=== PATIENT | male | born 1975 | race Caucasian/White ===

== ENCOUNTER 2017-11-16 11:04 | Inpatient (IN) | payer BC ==
[~2017-11-16] VITALS: Ht 182.9 cm; Wt 86.3 kg
[2017-11-16] MEDS ORDERED: ONDANSETRON HCL/PF 4 MG/2 ML VIAL ONE ×3 (11:24→16:26)
[2017-11-16] MEDS ORDERED: IV NS 0.9% 1,000 ML BAG IV ONE ×2 (11:30→15:00)
[2017-11-16] MEDS ORDERED: ONDANSETRON HCL/PF 4 MG/2 ML VIAL IVP ONE (11:30)
--- NOTE | 2017-11-16 11:45 | NUR ---
BIB [facility] C/O FEELING DIZZY (ROOM IS SPINNING) WITH NAUSEA AND VOMITING, NAD NOTED, VSS, RESP EVEN AND UNLABORED. PT WAS PUT ON MONITOR, AND HOSPITAL GOWN. WAITING FOR MD NUNEZ.
[2017-11-16 11:54] LABS: BASOPHILS % (AUTO) 0.3 % (0.0-2.0); EOSINOPHILS % (AUTO) 3.8 % (0.0-6.0); HEMATOCRIT 45 % (39-51); HEMOGLOBIN 14.9 g/dL (13.5-17.5); LYMPHOCYTES # (AUTO) 1.9 /CMM (0.8-4.8); LYMPHOCYTES % (AUTO) 24.3 % (20.0-44.0); MEAN CORPUSCULAR HEMOGLOBIN 31 PG (26.0-33.0); MEAN CORPUSCULAR HGB CONC 33 g/dl (31.0-36.0); MEAN CORPUSCULAR VOLUME 94 fL (80-96); MONOCYTES # (AUTO) 0.4 /CMM (0.1-1.30); MONOCYTES % (AUTO) 4.9 % (2.0-12.0); NEUTROPHILS # (AUTO) 5.3 /CMM (1.8-8.9); NEUTROPHILS % (AUTO) 66.7 % (43.0-81.0); PLATELET COUNT (AUTO) 225 /CMM (150-450); RDW COEFFICIENT OF VARIATION 13.1 (11.5-15.0); RED BLOOD CELL COUNT(AUTO) 4.78 MIL/uL (4.5-6.0); WHITE BLOOD COUNT (AUTO) 7.9 K/uL (4.3-11.0)
[2017-11-16 12:05] LABS: CARBON DIOXIDE 27 mmol/L (21-32); CHLORIDE 104 mmol/L (98-107); GLUCOSE 154 mg/dL (74-106); SODIUM SERUM 137 mmol/L (136-145); UREA NITROGEN, BLOOD 16 mg/dL (7-18)
[2017-11-16 12:11] LABS: ALANINE AMINOTRANSFERASE 34 U/L (12-78); ALBUMIN 4.2 g/dL (3.4-5.0); ALKALINE PHOSPHATASE 64 U/L (46-116); ASPARTATE AMINOTRANSFERASE 24 U/L (15-37); BILIRUBIN,DIRECT 0.1 mg/dL (0.0-0.2); BILIRUBIN,TOTAL 0.5 mg/dL (0.2-1.0); TOTAL PROTEIN, SERUM 7.7 g/dL (6.4-8.2)
[2017-11-16 12:15] LABS: TROPONIN I < 0.017 ng/mL (0.00-0.056)
[2017-11-16] MEDS ORDERED: IOHEXOL-300 100 ML VIAL IV ONE (12:29)
[2017-11-16] MEDS ORDERED: CT SWABBABLE VALVE TRANS SET 1 EA INFUS.SET MC ONE ×2 (12:29→22:45)
[2017-11-16] MEDS ORDERED: IV NS 0.9% 250 ML IV ONE (12:30)
[2017-11-16] MEDS ORDERED: MECLIZINE HCL 25 MG TABLET ONE (13:38)
[2017-11-16] MEDS ORDERED: MECLIZINE HCL 25 MG TABLET PO ONE (14:00)
[2017-11-16] MEDS ORDERED: ONDANSETRON HCL/PF - ER 4 MG/2 ML VIAL IV ONE (14:00)
[2017-11-16] MEDS ORDERED: BUPR300T52 PO (19:56)
--- NOTE | 2017-11-16 20:07 | NUR ---
CALLED NURSE ANASTACIA FOR MED.SURG BED
[2017-11-16] MEDS ORDERED: PROCHLORPERAZINE EDISYLATE 10 MG/2 ML VIAL ONE (20:35)
[2017-11-16] MEDS ORDERED: KETOROLAC TROMETHAMINE INJ 30 MG/ML VIAL ONE (20:35)
[2017-11-16] MEDS ORDERED: PROCHLORPERAZINE EDISYLATE 10 MG/2 ML VIAL IVP ONE (21:00)
[2017-11-16] MEDS ORDERED: KETOROLAC TROMETHAMINE INJ 30 MG/ML VIAL IV ONE (21:00)
--- NOTE | 2017-11-16 21:20 | NUR ---
CAN HANDLER NOTES Patient came to the unit via gurney, at bedside. Alert, oriented x 4. Breathing even and unlabored. Not in any distress. Patient able to make needs known. Skin assessment done, no skin issues. Oriented to call cardenas. Bed alarm on, patient may need assistance as he came in with vertigo. Bed in low, locked position. Will monitor accordingly.
[2017-11-16 22:00] VITALS: BP 132/67
[2017-11-16] MEDS ORDERED: IV NS 0.9% 1,000 ML IV PRN (22:27)
[2017-11-16] MEDS ORDERED: ACETAMINOPHEN 325 MG TABLET PO PRN (22:30)
[2017-11-16] MEDS ORDERED: DIAZEPAM 5 MG TABLET PO PRN (22:30)
[2017-11-16] MEDS ORDERED: Z GUARD REMEDY 2 OZ OINT TP PRN (22:30)
[2017-11-16] MEDS ORDERED: IOHEXOL-350 100 ML VIAL IV ONE (22:44)
[2017-11-16] MEDS ORDERED: IV NS 0.9% 500 ML IV ONE (22:45)
--- NOTE | 2017-11-16 23:28 | NUR ---
RN NOTES Patient went down for CTA HEAH and CAROTID
--- NOTE | 2017-11-17 00:41 | NUR ---
RN NOTES As per patient, IV was taken out when he was in radiology as the IV was leaking. New IV inserted on L hand g#22 with good blood return. IV of NS at 75mL/hr started as ordered
[2017-11-17 01:30] VITALS: BP 132/67
--- NOTE | 2017-11-17 03:25 | NUR ---
RN NOTES As per Austin Petersen, patient has cerebral infarct and neurosurgeon is made aware. No intervention as of this time. Neurocheck done. Patient is responsive to name and follows commands; able to lift both arms up and move feet and ankles, pupils are reactive to light. No nausea or complaints of headache and dizziness as of this time
[2017-11-17 04:00] VITALS: BP 121/68
[2017-11-17] MEDS: ONDANSETRON HCL/PF 4 MG/2 ML VIAL IVP PRN ×2 (06:23→12:39)
[2017-11-17 06:25] LABS: BASOPHILS % (AUTO) 0.2 % (0.0-2.0); EOSINOPHILS % (AUTO) 1.8 % (0.0-6.0); HEMATOCRIT 42 % (39-51); HEMOGLOBIN 14.2 g/dL (13.5-17.5); LYMPHOCYTES # (AUTO) 1.7 /CMM (0.8-4.8); LYMPHOCYTES % (AUTO) 22.4 % (20.0-44.0); MEAN CORPUSCULAR HEMOGLOBIN 32 PG (26.0-33.0); MEAN CORPUSCULAR HGB CONC 33 g/dl (31.0-36.0); MEAN CORPUSCULAR VOLUME 94 fL (80-96); MONOCYTES # (AUTO) 0.4 /CMM (0.1-1.30); MONOCYTES % (AUTO) 4.9 % (2.0-12.0); NEUTROPHILS # (AUTO) 5.5 /CMM (1.8-8.9); NEUTROPHILS % (AUTO) 70.7 % (43.0-81.0); PLATELET COUNT (AUTO) 206 /CMM (150-450); RDW COEFFICIENT OF VARIATION 13.3 (11.5-15.0); RED BLOOD CELL COUNT(AUTO) 4.49 MIL/uL (4.5-6.0); WHITE BLOOD COUNT (AUTO) 7.8 K/uL (4.3-11.0)
[2017-11-17 06:57] LABS: CALCIUM, SERUM 8.5 mg/dL (8.5-10.1); CREATININE 0.9 mg/dL (0.6-1.3); MAGNESIUM 1.9 mg/dL (1.8-2.4); PHOSPHORUS 3.5 mg/dL (2.5-4.9); POTASSIUM 3.8 mmol/L (3.5-5.1)
--- NOTE | 2017-11-17 07:18 | NUR ---
RN CLOSING NOTES Patient in bed, alert, oriented x 4, verbally responsive. Breathing even and unlabored. Not in any distress. Peripheral IV of NS infusing at 75mL/hr on left hand G#22. All needs attended to. All due medications given as ordered. Call cardenas within reach. Bed in low locked position. Endorsed ROSEY to AM shift RN.
--- NOTE | 2017-11-17 07:31 | NUR ---
RN OPENING NOTES RECEIVED PATIENT IN BED RESTING, A/OX4, VERBALLY RESPONSIVE. NEUROCHECK ASSESSMENT DONE, NO ABNORMALITIES. NO ACUTE DISTRESS, NO SOB, DENIED PAIN OR DISCOMFORT AT THIS TIME. STILL A LITTLE DIZZINESS NOTED PER PATIENT, WILL NOTIFY MD. IV SITE INTACT AND PATENT WITH IVF INFUSING AT 75ML/HR. KEPT PATIENT SAFE AND COMFORTABLE. BED IN LOW/LOCKED POSITION, SIDERAILS UPX2, CALL LIGHT IN REACH. WILL CONTINUE TO MONIOTR ACCORDINGLY.
[2017-11-17 08:00] VITALS: BP 136/76
[2017-11-17] MEDS ORDERED: BUPROPION XL 150 MG TAB.ER.24 PO SCH (09:00)
[2017-11-17] MEDS ORDERED: ONDANSETRON HCL/PF 4 MG/2 ML VIAL IV ONE (10:30)
--- NOTE | 2017-11-17 11:10 | NUR ---
PICKED UP PATIENT FOR MRI.
[2017-11-17] MEDS ORDERED: ASPIRIN EC 325 MG TABLET.DR PO SCH (11:30)
--- NOTE | 2017-11-17 14:07 | NUR ---
received call from dr. Petersen to transfer pt to [facility] fro neouro-surgeon evaluation, Anju Cedillo cm called and informed about transfer.
[2017-11-17 16:00] VITALS: BP 144/72
[2017-11-17] MEDS ORDERED: GADODIAMIDE 5 MMOL/10 ML VIAL ONE (16:00)
[2017-11-17] MEDS ORDERED: GADODIAMIDE 2.5 MMOL/5 ML VIAL ONE (16:00)
--- NOTE | 2017-11-17 16:27 | NUR ---
DISCHARGED PATIENT IN STABLE CONDITION PICKED UP BY AMBULANCE TO BE TRANSFERRED TO [facility] FOR HIGHER LEVEL OF CARE. DISCHARGE PAPERWORK GIVEN TO biology specialist. ALL BELONGINGS RETURNED,FORM SIGNED. REPORT GIVEN TO MIKHAIL OJEDA FROM [facility], INSTRUCTIONS GIVEN, MADE AWARE OF NPO STATUS. IV REMAINED INTACT AND PATENT. NAME BAND REMOVED.
[2017-11-17] MEDS ORDERED: ONDANSETRON HCL/PF 4 MG/2 ML VIAL IV PRN (16:30)
[2017-11-17] MEDS ORDERED: ATORVASTATIN 10 MG TABLET PO SCH (22:00)
== END 2017-11-17 16:10 | disposition short-term general hospital (02) | DRG 67 ==
LOC: ER 11:05 → MED 20:43
PROVIDERS: ADMIT Nurse Practitioner Acute Care; ATTEND Nurse Practitioner Acute Care
DX: I65.02 Occlusion and stenosis of left vertebral artery (principal); I77.74 Dissection of vertebral artery; J45.909 Unspecified asthma, uncomplicated; F32.9 Major depressive disorder, single episode, unspecified; Z88.0 Allergy status to penicillin
CPT/HCPCS: 36415; 70460-TC; 70491-TC; 70492; 70496-TC; 70498-TC; 70544-TC; 70551-TC; 80048-TC; 80061-TC; 80076-TC; 83735-TC; 84100-TC; 84484-TC; 85025-TC; 87081-TC; A4606; J0780; J1885; J2405; J7030; J7040; J7050; J8597; Q9967; Z7610